=== PATIENT | male | born 1965 ===

== ENCOUNTER 2022-06-14 10:35 | Outpatient (REF) | payer OTHER, SELFPAY ==
--- NOTE | ~2022-06-14 | XR_ITS ---
EXAMINATION: XR PELVIS CLINICAL INFORMATION: Pain COMPARISON: None available. TECHNIQUE: AP view of the pelvis. FINDINGS: The bones and soft tissues are normal. No fracture. Sacroiliac and hip joints are normal. Pubic symphysis is normal. No abnormal soft tissue calcifications. XR/XR pelvis 1-2V IMPRESSION: Normal pelvis.
== END 2022-06-14 10:36 | disposition home or self-care (01) ==
LOC: HO.HOSX 10:35
PROVIDERS: PCP Internal Medicine Sports Medicine; Visit Provider Orthopaedic Surgery
DX: M16.12 Unilateral primary osteoarthritis, left hip (principal)
CPT/HCPCS: 72170; 99212

== ENCOUNTER 2022-12-11 06:06 | Outpatient (REF) | payer OTHER, SELFPAY | END 2022-12-11 06:07 | disposition home or self-care (01) | LOC: CF 06:06 | PROVIDERS: Visit Provider Anesthesiology | DX: Z13.89 Encounter for screening for other disorder (principal) ==